=== PATIENT | female | born 1985 | race Caucasian/White ===

== ENCOUNTER 2024-05-20 09:16 | Outpatient (REF) | payer OTHER, SELFPAY ==
[2024-05-20 10:47] LABS: Basophils Absolute Auto 0.1 X10*3/uL (0.0-0.2); Basophils Percent Auto 0.7 % (0-2); Eosinophils Absolute Auto 0.1 X10*3/uL (0.0-0.4); Eosinophils Percent Auto 1.3 % (0-4); Hematocrit 44.6 % (37.0-47.0); Hemoglobin 14.5 g/dl (12.0-16.0); Imm Gran Abs Auto 0.03 X10*3/uL (0.00-0.03); Imm Gran Pct Auto 0.4 % (0.0-0.4); Lymphocytes Percent Auto 36.3 % (20-40); MANUAL DIFF FLAG SCAN; Mean Corpuscular HGB Conc 32.5 g/dl (31.0-35.0); Mean Corpuscular Hemoglobin 27.6 pg (27.0-33.0); Mean Corpuscular Volume 84.8 fL (80.0-98.0); Monocytes Absolute Auto 0.6 X10*3/uL (0.1-1.2); Monocytes Percent Auto 6.6 % (2-11); Neutrophils Absolute Auto 4.5 x10*3/uL (2.0-8.3); Neutrophils Percent Auto 54.7 % (45-73); PLT CLUMP 1; Red Blood Count 5.26 X10*6/uL (4.20-5.50); Red Cell Distribution Width 13.4 % (11.0-16.0); SCAN SMEAR FLAG 1
[2024-05-20 11:00] LABS: Appearance Urine Clear; Color Urine Yellow; Glucose Urine UA Negative (Negative); Leukocyte Esterase Urine Negative (Negative); Nitrite Urine Negative (Negative); PH 5.5 (5.0-9.0); Urine Blood Negative (Negative); Urine Ketones Negative (Negative); Urine Protein Negative (Neg-Trace)
[2024-05-20 11:09] LABS: Bacteria Urine None Seen (None Seen); Hyaline Casts Urine 0-2 /LPF (0-2); RBC Urine 0-2 /HPF (0-2); Squamous Epithelial Cell Urine 0-2 /HPF (0-2); WBC Urine 0-5 /HPF (0-5)
[2024-05-20 11:18] LABS: Platelet Count 192 X10*3/uL (160-400); SLIDE REVIEW VERIFIED; White Blood Count 8.3 X10*3/uL (4.8-10.8)
[2024-05-20 11:26] LABS: Erythrocyte Sedimentation Rate 6 MM/HR (0-20)
[2024-05-20 11:36] LABS: Alanine Aminotransferase 17 U/L (0-31); Albumin Level 4.1 g/dL (3.5-5.0); Alkaline Phosphatase 50 U/L (39-117); Anion Gap 12 (12-20); Aspartate Amino Transferase 15 U/L (5-31); Bilirubin Total 0.4 mg/dL (0.0-1.0); Blood Urea Nitrogen 10 mg/dL (9-16); C Reactive Protein 1.74 mg/dL (< or = 0.50); Calcium 9.2 mg/dL (8.4-10.2); Carbon Dioxide 23 mmol/L (22-29); Chloride 106 mmol/L (96-108); Cholesterol 203 mg/dL (<200); Estimated Glomerular Filt Rate > 60; Glucose Fasting 93 mg/dL (60-99); HDL Cholesterol 50 mg/dL (>40); LDL Cholesterol Calculated 118 mg/dL (<100); Potassium 4.2 mmol/L (3.3-5.1); Sodium 137 mmol/L (135-145); Total Protein 7.2 g/dL (6.5-8.0); Triglycerides 178 mg/dL (<150)
[2024-05-20 11:43] LABS: Thyroid Stimulating Hormone 0.99 uIU/mL (0.32-4.0); Vitamin D 25-OH Total 31.4 ng/mL (>30)
== END 2024-05-20 09:17 | disposition home or self-care (01) ==
LOC: HO.LAB 09:16
PROVIDERS: PCP Internal Medicine; Visit Provider Internal Medicine
DX: I10 Essential (primary) hypertension (principal); L71.9 Rosacea, unspecified; Z91.09 Other allergy status, other than to drugs and biological substances; E66.09 Other obesity due to excess calories; G47.9 Sleep disorder, unspecified
CPT/HCPCS: 36415; 80053; 80061; 81001; 82306; 84443; 85025; 85652; 86140

== ENCOUNTER 2025-02-08 15:20 | Outpatient (AMB) | payer BC, SELFPAY ==
--- NOTE | 2025-02-08 15:24 | MHC.PC.OV ---
Vital Signs 02/08/25 15:27 Height 5 ft 5.16 in Weight 182 lb BMI 30.1 BP 126/80 Respiration 16 Pulse 90 Pulse Source Pulse Oximeter Temp 97.8 F Temp Source Temporal Artery Scan Pulse Oximetry (%) 96 Oxygen Delivery Method Room Air Intake Visit Reasons: Thomas lange/ Dr. Perez Trimmer And Reinforcer Required: No Accompanied by: Self / Same As Patient Allergies amoxicillin Allergy (Mild, Verified 02/08/25 15:47) Stomach Upset morphine Allergy (Mild, Verified 02/08/25 15:47) Vomiting Medication List - Last Reconciled 02/08/25 by Shauna Kennedy PA-C desog-e.estradiol/e.estradiol 0.15-0.02 mgx21 /0.01 mg x 5 (Kariva (28)) 1 tab PO DAILY lisdexamfetamine 40 mg PO QAM lorazepam 1 - 2 mg PO DAILY PRN minoxidil mg PO oxymetazoline 1% (Rhofade) 1 appl topical DAILY zolpidem 10 mg PO BEDTIME PRN Tobacco use date assessed: 02/08/25 Dental Screening Dental Screen Date: 02/08/25 Did you have a dental visit in the last 12 months?: Yes Did you have a dental problem in the last 6 months where you did not have access to dental care?: No Was dental information given to patient?: Patient has dentist HPI Thomas lange/ Dr. Perez HPI Details The patient is a 39-year-old female presenting for an establishment of care visit and her annual physical examination. The patient reports a history of insomnia, which has been managed with Ambien and occasionally Ativan if the Ambien is ineffective. Recently, Vyvanse was initiated to address potential ADHD-related insomnia, though the patient is uncertain about continuing this medication. The patient has a history of rosacea, for which she uses Rolfade. She reports hair loss, which has been improving with the use of meladoxil, although it has resulted in increased hair growth in other areas. The patient experienced a kidney stone three weeks ago, which was managed at [facility]. The stone was 4 mm and passed naturally without the need for urological follow-up. The patient has a history of hyperlipidemia, with recent lab results showing elevated triglycerides and total cholesterol. She has been advised to improve her diet and has lost approximately 40 pounds over the past year through dietary changes and increased exercise. The patient reports experiencing an irregular heartbeat occasionally, which was previously evaluated with a 24-hour EKG and echocardiogram, both of which were normal. The irregular heartbeat occurs infrequently and resolves spontaneously. She also suspects exercise-induced asthma, as she experiences wheezing and difficulty catching her breath during physical activity. A referral to pulmonology for further evaluation has been planned. Social History - Exercise: Increased physical activity contributing to weight loss - Weight management: Lost approximately 40 pounds over the past year [facility] Medical History (Updated 02/08/25 @ 16:51 by Shauna Kennedy PA-C) Hyperlipidemia LDL goal <100 Hair loss Rosacea ADHD (attention deficit hyperactivity disorder) evaluation Insomnia Left nephrolithiasis Annual physical exam Exercise-induced asthma Heart murmur Family History Father Congestive heart failure Mother No problems noted. Social History Housing: House Alcohol intake: current Alcohol intake frequency: holidays/special occasions only Patient Tobacco Use Status: Never used Tobacco service: No Current occupational status: employed Cognitive needs: No Hearing needs: No Vision needs: Yes (reading glasses) Questionnaire PHQ-9 Over the last 2 weeks, how often have you been bothered by any of the following problems? 1. Little interest or pleasure in doing things: not at all 2. Feeling down, depressed, or hopeless: not at all 3. Trouble falling or staying asleep, or sleeping too much: not at all 4. Feeling tired or having little energy: not at all 5. Poor appetite or overeating: not at all 6. Feeling bad about yourself - or that you are a failure or have let yourself or your family down: not at all 7. Trouble concentrating on things, such as reading the newspaper or watching television: not at all 8. Moving or speaking so slowly that other people could have noticed. Or the opposite - being so fidgety or restless that you have been moving around a lot more than usual: not at all 9. Thoughts that you would be better off or of hurting yourself in some way: not at all Total score: 0 Depression Screening Interpretation: Negative Depression Screening Done: Yes 53944 - PHQ-9 Billing: Yes Source: Developed by Drs. Long Rosa, Manuela Kaiser, Ronald Barker and colleagues, with an educational beny from [employer] Thrive Questionnaire Date Thrive assessed: 02/08/25 I am a: Patient What is your living situation today?: I have a steady place to live Within the past 12 months, did the food you bought not last and you didn't have the money to get more?: Never true Within the past 12 months, did you worry whether your food would run out before you got money to buy more?: Never true Do you have trouble paying for medicines?: No Do you have trouble getting transportation to medical appointments?: No Do you have trouble paying your heating and electricity bill?: No Do you have trouble taking care of your child, family member or friend?: No Do you have trouble with day-to-day activities such as bathing, preparing meals, shopping, managing finances, etc.?: No Are you currently unemployed and looking for a job?: No Are you interested in more education?: No Please select the resources that you would like help with: None THRIVE Score: 0 AUDIT C Alcohol Use Questionnaire (AUDIT-C) 1. How often do you have a drink containing alcohol?: Monthly or less 2. How many drinks containing alcohol do you have on a typical day when you are drinking?: 1 or 2 3. How often do you have six or more drinks on one occasion?: Never Total Score: 1 Score Reviewed/Action Taken: No PELON-7 AMB Questionnaire PELON-7 Date PELON - 7 assessed: 02/08/25 Feeling nervous, anxious, or on edge: 0 = Not at all Not being able to stop or control worryin = Not at all Worrying too much about different things: 0 = Not at all Trouble relaxin = Not at all Being so restless that it is hard to sit still: 0 = Not at all Becoming easily annoyed or irritable: 0 = Not at all Feeling afraid as if something awful might happen: 0 = Not at all Total PELON-7 score (0-4 normal; 5-9 mild; 10-14 moderate; 15-21 severe): 0 Source: Developed by Drs. Long Rosa, Manuela Kaiser, Ronald Barker and colleagues, with an educational beny from [employer] PELON-7 Assessment Billing PELON-7 Assessment Tool: PELON-7 Assessment 66081 Review of Systems Const Details: - Cardiovascular: Reports irregular heartbeat occasionally. Denies chest pain. - Respiratory: Reports wheezing and difficulty catching breath during exercise. Denies chest pain. - Dermatological: Reports hair loss, improving with treatment. Reports rosacea. - Neurological: Reports insomnia managed with medication. All systems reviewed & are unremarkable except as noted in HPI and below Physical exam (Primary Care) Vital Signs: Last Vital Signs Temp 97.8 F 02/08/25 15:27 Pulse 90 02/08/25 15:27 Resp 16 02/08/25 15:27 BP 126/80 02/08/25 15:27 Pulse Ox 96 02/08/25 15:27 Oxygen Delivery Method Room Air 02/08/25 15:27 Care Plan Goal for BP management: <140/90 at Goal BMI result Body Mass Index 30.1 BMI Assessment/Plan discussion: High BMI High, discussed plan: lifestyle, weight reduction, dietary, physical activity, alcohol moderation and other Tobacco/Smoking Status: Tobacco use Status Tobacco use date assessed 02/08/25 02/08/25 15:35 Patient Tobacco Use Status Never used Tobacco 02/08/25 15:35 PHQ-9: PHQ-9 Score PHQ-9: Total score 0 02/08/25 15:49 Depression Screening Interpretation: Negative Thrive Assessment: Date of Thrive Assessment Date Thrive assessed 02/08/25 02/08/25 15:35 Const Other: Appearance: Alert. Oriented X3. No acute distress. Head: Normal external exam. Normocephalic. Atraumatic. Eyes: Pupils are equal, round, and reactive to light. Extraocular movements intact. Conjunctiva and sclera normal. Eyelids normal. Ears: External auditory canal normal. Tympanic membranes normal with a little bit of scar tissue noted. Throat: Pharynx normal. Uvula midline. Moist mucous membranes. Neck: Normal inspection. Neck supple. Full range of motion. No adenopathy. Thyroid Normal. No meningeal signs. No neck mass noted. Cardiovascular: Normal heart rate and rhythm. Heart sounds loud with one tapping sound noted. No murmurs noted. Pulses normal throughout. Respiratory: No respiratory distress. Painless inspiration. Breath sounds normal. No wheezes/rales/rhonchi noted. Chest nontender. No accessory muscle usage noted or decreased air movement noted. Abdomen: Soft and nontender. Bowel sounds normal in all 4 quadrants. No distention noted. No organomegaly noted. No visible injury noted. Back: No costovertebral angle tenderness. Full range of motion noted. Skin: Skin warm and dry. Normal skin color. Normal skin turgor. No rashes/lesions/lacerations noted. Extremities: No lower extremity edema. Extremities exhibit normal range of motion. Extremities nontender. Neuro: Oriented X 3. No motor deficit. No sensory deficit. Reflexes normal. Results Reviewed Results Reviewed: - Labs: Elevated triglycerides at 178 mg/dL, total cholesterol at 203 mg/dL Coding Level of Care Code New Pt Level 4 (89464) New Pt Prev Care 40-64y(84476) Diagnoses Annual physical exam Z00.00 Left nephrolithiasis N20.0 Insomnia G47.00 ADHD (attention deficit hyperactivity disorder) evaluation Z13.39 Rosacea L71.9 Hair loss L65.9 Hyperlipidemia LDL goal <100 E78.5 Exercise-induced asthma J45.990 Heart murmur R01.1 Additional Codes PELON-7 Assessment Billing - PELON-7 Assessment Tool: PELON-7 Assessment 05253 ([id number]) PHQ-9 - 29484 - PHQ-9 Billing: Yes ([id number]) Assessment & Plan Assessment & Plan (1) Annual physical exam: Code(s): Z00.00 - Encounter for general adult medical examination without abnormal findings Category: Medical (2) Left nephrolithiasis: Code(s): N20.0 - Calculus of kidney Category: Medical Plan: The patient recently passed a 4 mm kidney stone naturally and does not require further urological follow-up. (3) Insomnia: Code(s): G47.00 - Insomnia, unspecified Category: Medical Plan: The patient continues to manage insomnia with Ambien and occasionally Ativan if needed. Vyvanse has been introduced to address potential ADHD-related insomnia, though its continuation is uncertain. (4) ADHD (attention deficit hyperactivity disorder) evaluation: Code(s): Z13.39 - Encounter for screening examination for other mental health and behavioral disorders Category: Medical Plan: Vyvanse has been initiated to manage ADHD symptoms, particularly those affecting sleep. The patient is monitoring its effectiveness and considering whether to continue its use. (5) Rosacea: Code(s): L71.9 - Rosacea, unspecified Category: Medical Plan: The patient is using Rolfade for rosacea management. (6) Hair loss: Code(s): L65.9 - Nonscarring hair loss, unspecified Category: Medical Plan: Meladoxil is being used to treat hair loss, with noted improvement. (7) Hyperlipidemia LDL goal <100: Code(s): E78.5 - Hyperlipidemia, unspecified Category: Medical Plan: The patient has been advised to improve her diet to manage hyperlipidemia, with a focus on reducing triglycerides and total cholesterol. She has already lost approximately 40 pounds through dietary changes and exercise. (8) Exercise-induced asthma: Code(s): J45.990 - Exercise induced bronchospasm Category: Medical Plan: The patient experiences wheezing and difficulty breathing during exercise, suggesting exercise-induced asthma. A referral to pulmonology has been made for further evaluation. (9) Heart murmur: Code(s): R01.1 - Cardiac murmur, unspecified Category: Medical Plan: The patient reports occasional irregular heartbeat, previously evaluated with normal 24-hour EKG and echocardiogram results. The condition is monitored, and further testing will be considered if symptoms persist. Plan Plan Patient was informed and verbally consented to the use of an ambient scribe for clinic note documentation during this visit. 1. Insomnia The patient continues to manage insomnia with Ambien and occasionally Ativan if needed. Vyvanse has been introduced to address potential ADHD-related insomnia, though its continuation is uncertain. 2. Attention Deficit Hyperactivity Disorder (Adhd) Vyvanse has been initiated to manage ADHD symptoms, particularly those affecting sleep. The patient is monitoring its effectiveness and considering whether to continue its use. 3. Rosacea The patient is using Rolfade for rosacea management. 4. Hair Loss Meladoxil is being used to treat hair loss, with noted improvement. 5. Kidney Stone The patient recently passed a 4 mm kidney stone naturally and does not require further urological follow-up. 6. Hyperlipidemia The patient has been advised to improve her diet to manage hyperlipidemia, with a focus on reducing triglycerides and total cholesterol. She has already lost approximately 40 pounds through dietary changes and exercise. 7. Exercise-Induced Asthma The patient experiences wheezing and difficulty breathing during exercise, suggesting exercise-induced asthma. A referral to pulmonology has been made for further evaluation. 8. Irregular Heartbeat The patient reports occasional irregular heartbeat, previously evaluated with normal 24-hour EKG and echocardiogram results. The condition is monitored, and further testing will be considered if symptoms persist. During the visit, we discussed the management of insomnia with current medications, including Ambien and Ativan, and the potential role of Vyvanse for ADHD-related symptoms. We reviewed the patient's history of kidney stones and the recent passing of a 4 mm stone without complications. The patient was advised on dietary modifications to manage hyperlipidemia and was referred to pulmonology for suspected exercise-induced asthma. Orders: Orders Hemoglobin A1c Today Z00.00 - Encounter for general adult medical examination without abnormal findings TSH reflex Free T4 Today Z00.00 - Encounter for general adult medical examination without abnormal findings Magnesium Today Z00.00 - Encounter for general adult medical examination without abnormal findings Lipid Panel Today Z00.00 - Encounter for general adult medical examination without abnormal findings Vitamin D 25-OH Total Today Z00.00 - Encounter for general adult medical examination without abnormal findings C Reactive Protein Today Z00.00 - Encounter for general adult medical examination without abnormal findings Comprehensive [place]. Panel Fast Today Z00.00 - Encounter for general adult medical examination without abnormal findings Complete Blood Count Auto Diff Today Z00.00 - Encounter for general adult medical examination without abnormal findings Liver Panel Today Z00.00 - Encounter for general adult medical examination without abnormal findings Vitamin B12 and Folate Today Z00.00 - Encounter for general adult medical examination without abnormal findings Erythrocyte Sedimentation Rate Today Z00.00 - Encounter for general adult medical examination without abnormal findings CA echo transthoracic complete Today R01.1 - Cardiac murmur, unspecified Referrals Pulmonology Referral J45.990 - Exercise induced bronchospasm Medications: New albuterol sulfate 90 mcg/actuation 1 inh inhalation QID PRN 8.5 grams 3RF shortness of breath or wheezing Patient Instructions: - Continue current medications for insomnia as prescribed. - Follow dietary recommendations to manage cholesterol levels. - Schedule and attend pulmonology referral for evaluation of exercise-induced asthma. - Monitor for any changes in symptoms and report them during the next visit.
[2025-02-08 15:27] VITALS: BP 126/80; PULSE 90; RESP 16; TEMP 36.6; O2SAT 96; BMI 30.1
== END 2025-02-08 17:03 | disposition home or self-care (01) ==
LOC: HO.HMCSH 15:20
PROVIDERS: PCP Internal Medicine; Visit Provider Physician Assistant Medical
DX: Z00.00 Encounter for general adult medical examination without abnormal findings (principal); N20.0 Calculus of kidney; G47.00 Insomnia, unspecified; R01.1 Cardiac murmur, unspecified; L71.9 Rosacea, unspecified; Z13.39 Encounter for screening examination for other mental health and behavioral disorders; L65.9 Nonscarring hair loss, unspecified; E78.5 Hyperlipidemia, unspecified; J45.990 Exercise induced bronchospasm

== ENCOUNTER → 2025-02-08 15:20 | Outpatient (BNVA) | payer BC, SELFPAY | PROVIDERS: PCP Internal Medicine; Visit Provider Physician Assistant Medical | DX: Z00.00 Encounter for general adult medical examination without abnormal findings (principal); G47.00 Insomnia, unspecified; E78.5 Hyperlipidemia, unspecified; L71.9 Rosacea, unspecified; L65.9 Nonscarring hair loss, unspecified; J45.990 Exercise induced bronchospasm; R01.1 Cardiac murmur, unspecified; Z87.442 Personal history of urinary calculi | CPT/HCPCS: 96127 ==

== ENCOUNTER 2025-05-11 14:58 | Outpatient (AMB) | payer BC, SELFPAY ==
--- NOTE | 2025-05-11 15:01 | A.OFFVIS_ITS ---
Vital Signs 05/11/25 15:02 Height 5 ft 5.16 in Weight 178 lb 8 oz BMI 29.6 BP 118/76 Blood Pressure Location Rt brachial Position Sitting Pulse 87 Pulse Source Pulse Oximeter Pulse Oximetry (%) 98 Oxygen Delivery Method Room Air Intake Visit Reasons: Exercise induced bronchospasm Allergies amoxicillin Allergy (Mild, Verified 05/11/25 15:04) Stomach Upset morphine Allergy (Mild, Verified 05/11/25 15:04) Vomiting HPI HPI Exercise induced bronchospasm: Details: Tammi is a pleasant 39 year old female, never smoker, with no significant past medical history. She was referred by PCP for pulmonary evaluation for possible exercise induced asthma. Symptoms began this summer while bike riding, where she experienced becoming easily out of breath and wheezing. She also reports a chronic, intermittent dry cough or tickle in her throat that occurs a few days a week, which she had previously attributed to allergies. She denies chest tightness but occasionally feels a crackling sensation, possibly related to mucus. The patient has a history of significant allergies since childhood and has been receiving allergy shots for 8-9 years, which she reports have been 'life- changing'. She is currently stopping the allergy shots for a trial period. She lives with two cats, to which she is allergic. Her current allergy regimen includes Zyrtec and Flonase. She was prescribed albuterol but has only used it once and has since been avoiding exercise. This avoidance is due to both the respiratory symptoms and severe rosacea flare-ups with exertion. She denies a prior diagnosis of asthma, has never had a PFT or recent chest x-ray, and has never required prednisone for breathing issues. She reports only one significant respiratory infection in the past 5-6 years that required albuterol. The patient denies a history of smoking, secondhand smoke exposure, or other environmental exposures like chemicals or asbestos. There is no family history of asthma in her parents, but cousins, aunts, and uncles have allergies/asthma. [facility] Medical History (Updated 05/14/25 @ 14:14 by Jerilyn Oneill NP) Hyperlipidemia LDL goal <100 Hair loss Rosacea ADHD (attention deficit hyperactivity disorder) evaluation Insomnia Left nephrolithiasis Annual physical exam Exercise-induced asthma Heart murmur Family History Father Congestive heart failure Mother No problems noted. Social History Housing: House Alcohol intake: current Alcohol intake frequency: holidays/special occasions only Patient Tobacco Use Status: Never used Tobacco service: No Current occupational status: employed Cognitive needs: No Hearing needs: No Vision needs: Yes (reading glasses) Review of Systems Const Denies chills, Denies excessive sweating, Denies fever(s), Denies headache(s) and Denies night sweats Eyes Denies dry eyes, Denies irritation and Denies itchy eyes ENT Reports Normal hearing present, Denies headache(s), Denies nasal congestion, Denies nasal discharge, Denies post nasal drip and Denies sore throat Card Denies chest pain, Denies chest pain at rest, Denies chest pain with activity, Denies claudication, Denies leg edema, Denies dyspnea, Denies dyspnea on exertion, Denies orthopnea and Denies paroxysmal nocturnal dyspnea Resp Denies chest congestion, Denies excessive phlegm production, Denies pain on inspiration, Denies pain with cough, Denies dyspnea, Denies dyspnea on exertion, Denies stridor and Denies wheezing Musc Denies myalgias Neuro Reports Normal hearing present and Denies headache(s) Endo Denies excessive sweating Luca/Lymph Denies lymphadenopathy Aller/Immun Denies itchy eyes, Denies seasonal rhinorrhea and Denies wheezing Physical Exam Vital Signs: Last Vital Signs Pulse 87 05/11/25 15:02 BP 118/76 05/11/25 15:02 Pulse Ox 98 05/11/25 15:02 Oxygen Delivery Method Room Air 05/11/25 15:02 BMI result Body Mass Index 29.6 Const General: cooperative, healthy appearing, comfortable, no acute distress, well developed and alert Nutritional Appearance: average body habitus Orientation/consciousness: patient oriented x3 Limitations: no limitations HEENT Head: Yes normal to inspection, Yes normocephalic and Yes atraumatic Ears: hearing grossly normal bilaterally and external ears normal Eyes General: appearance normal, both eyes and all related structures Eyelids: Yes eyelids normal Sclerae: sclerae normal EOM: EOMs intact bilaterally Neck Neck: Yes normal visual inspection and Yes no lymphadenopathy Lymphatic: no lymphadenopathy noted Chest Chest palpation & inspection: normal inspection of the chest Resp Effort & Inspection: normal respiratory effort, able to speak in complete sentences, no audible wheezes, no cough, no stridor, not tachypneic, no tripod positioning and no use of accessory muscles Auscultation: clear to auscultation bilaterally Cardio Jugular venous distension: no JVD Rate: regular rate Rhythm: regular rhythm Skin Other: warm, dry General skin exam: no rashes or lesions noted Neuro General: patient oriented x3 Cranial nerves: Yes Normal hearing present Cognition (Neuro): normal cognition Gait exam (Neuro): Normal gait present Extrem General: Yes normal to inspection, Yes capillary refill normal, Yes no clubbing, cyanosis or edema and Yes no pedal edema Psych Appearance: grossly normal and well kempt Speech and movement: Normal speech and movement present and Clear speech present Affect: normal affect Attitude: cooperative Thought process: Normal thought process present Thought content: Normal thought content present Insight: Good insight present (Psych) Judgement: Good judgement present (Psych) Assessment & Plan Assessment & Plan (1) Exercise-induced asthma: Code(s): J45.990 - Exercise induced bronchospasm Category: Medical (2) Cough: Code(s): R05.9 - Cough, unspecified Category: Medical (3) Environmental allergies: Code(s): Z91.09 - Other allergy status, other than to drugs and biological substances Category: Medical Plan The patient's presentation with dyspnea and wheezing upon exertion is suspicious for exercise-induced bronchospasm. To further evaluate, a chest x-ray and a PFT will be ordered. The patient is advised to use her albuterol inhaler as needed after exercise for symptoms, or, if that is insufficient, to try using it 15-20 minutes before activity. If frequent use of albuterol is required, initiation of a daily maintenance medication will be considered. The patient has a significant history of allergies, which may be contributing to her respiratory symptoms. She is currently managed with Zyrtec and Flonase and is under the care of an cnc operator. No new allergy testing will be ordered at this time, but the results from her upcoming re-evaluation with her cnc operator will be of interest. All questions were answered and patient is in agreement of plan. Will follow up to review results or sooner if needed. Orders: Orders XR chest 2V 05/11/25 R05.9 - Cough, unspecified PFT pulmonary function test Today J45.990 - Exercise induced bronchospasm, R05.9 - Cough, unspecified Coding Level of Care Code New Pt Level 3 (90069) Diagnoses Exercise-induced asthma J45.990 Cough R05.9 Environmental allergies Z91.09
[2025-05-11 15:02] VITALS: BP 118/76; PULSE 87; O2SAT 98; BMI 29.6
== END 2025-05-11 15:26 | disposition home or self-care (01) ==
LOC: HO.HPSW 15:00
PROVIDERS: PCP Physician Assistant Medical; Referring Provider Physician Assistant Medical; Visit Provider Nurse Practitioner Family
DX: J45.990 Exercise induced bronchospasm (principal); R05.9 Cough, unspecified; Z91.09 Other allergy status, other than to drugs and biological substances
CPT/HCPCS: 99203